=== PATIENT | male | born 2005 | race Caucasian/White ===

== ENCOUNTER 2025-01-19 12:42 | Outpatient (CLI) | payer BC ==
[2025-01-19] MEDS ORDERED: Barium Sulfate 96% 176 GM BOT (xray ONLY) ONE (12:51)
[2025-01-19] MEDS ORDERED: E-Z-HD 98% W/W 340GM BOT (x-ray ONLY) ONE (12:51)
== END 2025-01-19 12:43 | disposition home or self-care (01) ==
LOC: RAD 12:42
PROVIDERS: ATTEND Internal Medicine Gastroenterology
DX: R07.9 Chest pain, unspecified (principal); J98.2 Interstitial emphysema; R07.0 Pain in throat
CPT/HCPCS: 74220